=== PATIENT | female | born 1985 | race Caucasian/White ===

== ENCOUNTER 2019-10-29 09:19 | Day surgery (SDC) | payer OTHER ==
[~2019-10-29] VITALS: Ht 157.5 cm; Wt 60.5 kg
[2019-10-29] MEDS ORDERED: DEXAMETHASONE SOD PHOS 4 MG/ML VIAL IVP ONE (09:20)
[2019-10-29] MEDS ORDERED: FentaNYL CITRATE-PF 100 MCG/2 ML VIAL IVP ONE (09:20)
[2019-10-29] MEDS ORDERED: MIDAZOLAM HCL 2 MG/2 ML VIAL IVP ONE (09:20)
[2019-10-29] MEDS ORDERED: KETOROLAC TROMETHAMINE 60 MG/2 ML VIAL IM ONE (09:20)
[2019-10-29] MEDS ORDERED: SUCCINYLCHOLINE CHLORIDE 20 MG/ML 10 ML VIAL IVP ONE (09:20)
[2019-10-29] MEDS ORDERED: KETAMINE HCL 50 MG/ML 10 ML VIAL IVP ONE (09:20)
[2019-10-29] MEDS ORDERED: LIDOCAINE/PF 2% 5 ML VIAL IM ONE (09:20)
[2019-10-29] MEDS ORDERED: PROPOFOL 1% 20 ML VIAL IVP ONE (09:20)
[2019-10-29] MEDS ORDERED: ROCURONIUM BROMIDE 10 MG/ML 5 ML VIAL IVP ONE (09:20)
[2019-10-29] MEDS ORDERED: ONDANSETRON HCL 4 MG/2 ML VIAL IVP ONE (09:20)
[2019-10-29] MEDS ORDERED: LIDOCAINE 2%/EPI 1:200,000/PF 20 ML VIAL ONE ×2 (09:29→09:32)
[2019-10-29] MEDS ORDERED: BUPIVACAINE HCL/PF 0.5% 30 ML VIAL ONE (09:30)
[2019-10-29] MEDS ORDERED: IOHEXOL 240 MG/ML 20 ML VIAL ONE (09:30)
[2019-10-29] MEDS ORDERED: RINGERS SOLUTION,LACTATED 1,000 ML IV ONE (09:30)
[2019-10-29] MEDS ORDERED: SODIUM CHLORIDE 0.9% 0 ML ONE (09:31)
[2019-10-29] MEDS ORDERED: MetroNIDAZOLE 500 MG/NACL 100 ML IV ONE ×2 (09:45→09:50)
[2019-10-29] MEDS ORDERED: CeFAZolin 2 GM/DEXTROSE 50 ML IV ONE (09:45)
[2019-10-29 09:53] LABS: BASOPHILS % (AUTO) 0.7 % (0.0-2.0); EOSINOPHILS % (AUTO) 2.1 % (1.0-6.0); HEMATOCRIT 38.3 % (36-46); HEMOGLOBIN 12.9 g/dL (12.0-16.0); LYMPHOCYTES # (AUTO) 1.5 K/uL (1.0-4.8); LYMPHOCYTES % (AUTO) 23.3 % (22.0-44.0); MEAN CORPUSCULAR HEMOGLOBIN 29.6 pg (26.0-34.0); MEAN CORPUSCULAR HGB CONC 33.6 G/dL (31.0-37.0); MEAN CORPUSCULAR VOLUME 88 fL (80-100); MONOCYTES # (AUTO) 0.5 K/uL (0.1-1.0); MONOCYTES % (AUTO) 8.4 % (2.0-9.0); NEUTROPHILS # (AUTO) 4.2 K/uL (1.8-7.7); NEUTROPHILS % (AUTO) 65.5 % (40.0-70.0); PLATELET COUNT (AUTO) 313 K/uL (150-450); RED BLOOD CELL COUNT(AUTO) 4.36 MIL/uL (4.00-5.20); RED CELL DISTRIBUTION WIDTH 13.6 % (11.5-14.5)
[2019-10-29 10:03] LABS: ANION GAP 10 mmol/L (8-16); CALCIUM, TOTAL 9.5 mg/dL (8.8-10.5); CARBON DIOXIDE 26 mmol/L (22-29); CHLORIDE 103 mmol/L (98-107); GLOMERULAR FILTR. RATE CALC > 60 mL/min (>60); GLUCOSE,RANDOM 83 mg/dL (70-110); POTASSIUM 3.8 mmol/L (3.5-5.1); SODIUM SERUM 139 mmol/L (136-145); UREA NITROGEN, BLOOD 10 mg/dL (7-18)
[2019-10-29 10:14] LABS: ALANINE AMINOTRANSFERASE 63 U/L (12-78); ALBUMIN 4.5 g/dL (3.4-5.0); ALKALINE PHOSPHATASE 157 U/L (46-116); ASPARTATE AMINOTRANSFERASE 24 U/L (15-37); BILIRUBIN,TOTAL 0.5 mg/dL (0.1-1.0); HCG,QUANTITATIVE 1 mIU/mL (0-6); TOTAL PROTEIN, SERUM 8.3 g/dL (6.4-8.2)
[2019-10-29] MEDS ORDERED: HYDROmorphone 2 MG/ML SYRINGE IVP PRN (10:30)
[2019-10-29] MEDS ORDERED: MEPERIDINE-PF 25 MG/ML VIAL IVP PRN (10:30)
[2019-10-29] MEDS ORDERED: FentaNYL CITRATE-PF 100 MCG/2 ML VIAL IVP PRN (10:30)
[2019-10-29] MEDS ORDERED: SUGAMMADEX SODIUM 200 MG/2 ML VIAL IVP ONE (11:00)
[2019-10-29] MEDS ORDERED: ACETAMINOPHEN 1000 MG/ISO-OSM 100 ML IV ONE (11:01)
[2019-10-29] MEDS ORDERED: ACETAMINOPHEN 500 MG TABLET PO PRN (11:15)
[2019-10-29] MEDS ORDERED: IBUPROFEN 800 MG TABLET PO PRN (11:15)
[2019-10-29] MEDS ORDERED: MEPERIDINE-PF 25 MG/ML VIAL ONE (11:29)
[2019-10-29] MEDS ORDERED: OXYGEN THERAPY IH SCH (20:00)
== END 2019-10-29 14:30 | disposition home or self-care (01) ==
LOC: SURGERY 09:19
PROVIDERS: ATTEND Surgery
DX: K80.10 Calculus of gallbladder with chronic cholecystitis without obstruction (principal)
CPT/HCPCS: 36415; 47562; 80053; 84702; 84703; 85025; J0131; J0330; J1100; J1885; J2175; J2250; J2405; J2704; J3010; J3490 ×5; 88304; J7030; Q9966

== ENCOUNTER 2019-11-06 02:12 | Emergency (ER) | payer OTHER ==
[~2019-11-06] VITALS: Ht 157.5 cm; Wt 59.1 kg
[2019-11-06] MEDS ORDERED: SODIUM CHLORIDE 0.9% 1,000 ML IV ONE (02:45)
[2019-11-06] MEDS ORDERED: KETOROLAC TROMETHAMINE 30 MG/ML VIAL IVP ONE (02:45)
[2019-11-06] MEDS ORDERED: PB/HYOSCY/ATR/SCOP/LIDO/MAALOX 55 ML BOTTLE PO ONE (03:00)
[2019-11-06] MEDS ORDERED: SODIUM CHLORIDE 0.9% 100 ML ONE (03:12)
[2019-11-06] MEDS ORDERED: IOVERSOL 350 MG/ML 100 ML VIAL ONE (03:12)
[2019-11-06 03:14] LABS: BASOPHILS % (AUTO) 0.9 % (0.0-2.0); EOSINOPHILS % (AUTO) 1.4 % (1.0-6.0); HEMATOCRIT 38.2 % (36-46); HEMOGLOBIN 12.9 g/dL (12.0-16.0); LYMPHOCYTES # (AUTO) 1.4 K/uL (1.0-4.8); LYMPHOCYTES % (AUTO) 15.6 % (22.0-44.0); MEAN CORPUSCULAR HEMOGLOBIN 29.7 pg (26.0-34.0); MEAN CORPUSCULAR HGB CONC 33.8 G/dL (31.0-37.0); MEAN CORPUSCULAR VOLUME 88 fL (80-100); MONOCYTES # (AUTO) 0.7 K/uL (0.1-1.0); MONOCYTES % (AUTO) 8.4 % (2.0-9.0); NEUTROPHILS # (AUTO) 6.4 K/uL (1.8-7.7); NEUTROPHILS % (AUTO) 73.7 % (40.0-70.0); PLATELET COUNT (AUTO) 316 K/uL (150-450); RED BLOOD CELL COUNT(AUTO) 4.35 MIL/uL (4.00-5.20); RED CELL DISTRIBUTION WIDTH 13.7 % (11.5-14.5)
[2019-11-06 03:51] LABS: ANION GAP 9 mmol/L (8-16); CALCIUM, TOTAL 9.5 mg/dL (8.8-10.5); CARBON DIOXIDE 27 mmol/L (22-29); CHLORIDE 100 mmol/L (98-107); CREATININE 0.75 mg/dL (0.60-1.30); GLOMERULAR FILTR. RATE CALC > 60 mL/min (>60); GLUCOSE,RANDOM 125 mg/dL (70-110); POTASSIUM 3.6 mmol/L (3.5-5.1); SODIUM SERUM 136 mmol/L (136-145); UREA NITROGEN, BLOOD 12 mg/dL (7-18)
[2019-11-06 04:02] LABS: ALANINE AMINOTRANSFERASE 361 U/L (12-78); ALBUMIN 4.3 g/dL (3.4-5.0); ALKALINE PHOSPHATASE 236 U/L (46-116); ASPARTATE AMINOTRANSFERASE 456 U/L (15-37); BILIRUBIN,TOTAL 1.1 mg/dL (0.1-1.0); HCG,QUANTITATIVE < 1 mIU/mL (0-6); LIPASE 126 U/L (73-393); TOTAL PROTEIN, SERUM 8.4 g/dL (6.4-8.2)
[2019-11-06 06:18] VITALS: BP 116/76
== END 2019-11-06 06:37 | disposition home or self-care (01) ==
LOC: EMS 02:13
DX: R10.13 Epigastric pain (principal); R10.11 Right upper quadrant pain; Z90.89 Acquired absence of other organs
CPT/HCPCS: 36415; 74176; 80053; 83690; 84702; 85025; 96374; 99284; J1885; J7030; J7050; Q9967

== ENCOUNTER 2019-11-20 13:31 | Emergency (ER) | payer OTHER ==
[~2019-11-20] VITALS: Ht 160 cm; Wt 61.4 kg
[2019-11-20 13:50] VITALS: BP 134/84
== END 2019-11-20 14:06 | disposition home or self-care (01) ==
LOC: EMS 13:32
DX: Z48.01 Encounter for change or removal of surgical wound dressing (principal); Z90.89 Acquired absence of other organs